=== PATIENT | female | born 1995 | race Caucasian/White ===

== ENCOUNTER 2018-07-05 07:00 | Emergency (ER) | payer OTHER ==
[~2018-07-05] VITALS: Ht 157.5 cm; Wt 74.8 kg
[2018-07-05] MEDS ORDERED: LORAZEPAM 1 MG TABLET ONE (07:27)
[2018-07-05] MEDS ORDERED: LORAZEPAM 0.5 MG TABLET PO ONE (07:30)
--- NOTE | 2018-07-05 07:57 | NUR ---
Patient discharged to home in stable conditon. Written and verbal after care instructions given. Patient verbalizes understanding of instructions.
[2018-07-05 08:01] VITALS: BP 122/60
== END 2018-07-05 08:01 | disposition home or self-care (01) ==
LOC: ER 07:05
DX: F41.0 Panic disorder [episodic paroxysmal anxiety] (principal)
CPT/HCPCS: A4663